=== PATIENT | male | born 1935 | race Two or more races ===

== ENCOUNTER 2023-05-19 15:37 | Inpatient (IN) | payer MEDICARE, OTHER ==
[~2023-05-19] VITALS: Ht 162.6 cm; Wt 66.5 kg
[2023-05-19 17:18] LABS: Basophils # (auto) 0.1 10 ^3/uL (0-0.2); Eosinophils # (auto) 0.2 10 ^3/uL (0-0.8); Eosinophils % (auto) 2.1 % (0.0-7.0); Monocytes # (auto) 0.5 10 ^3/uL (0-1.3)
[2023-05-19 17:19] LABS: Basophils % (auto) 0.7 % (0.0-2.0); Hematocrit 47.9 % (41.0-53.0); Lymphocytes # (auto) 1.2 10 ^3/uL (0.4-5.4); Lymphocytes % (auto) 11.7 % (10.0-50.0); Mean Corpuscular Hemoglobin 34.8 pg (28.0-32.0); Mean Corpuscular Hgb Conc. 35.4 g/dL (32.0-36.0); Mean Corpuscular Volume 98.3 fL (80.0-100.0); Neutrophils % (auto) 80.5 % (37.0-80.0); Nucleated Red Blood Cells % 0.1 %; Red Blood Cells 4.87 10^6/uL (4.5-5.90); Red Cell Distribution Width 13.5 % (11.8-14.3); White Blood Cell 9.9 10^3/uL (4.4-10.8)
[2023-05-19 17:37] LABS: Alanine Aminotransferase 12 U/L (7-40); Albumin 4.6 g/dL (3.2-4.8); Alkaline Phosphatase 108 U/L (46-116); Anion Gap 9 (5-15); Aspartate Aminotransferase 23 U/L (13-40); BUN/Creatinine Ratio 6.1 (10.0-20.0); Bilirubin, Total 1.2 mg/dL (0.2-1.0); Blood Alcohol 3.8 mg/dL (<10); Blood Urea Nitrogen 7 mg/dL (9-23); Calcium 9.4 mg/dL (8.7-10.4); Carbon Dioxide 25 mmol/L (20-30); Chloride 101 mmol/L (98-107); Glucose 89 mg/dL (74-106); Lipase 31 U/L (12-53); Potassium 4.3 mmol/L (3.5-5.1); Sodium 135 mmol/L (136-145); Total Protein 7.8 g/dL (5.7-8.2)
[2023-05-19 17:44] LABS: INR 1.11 (0.9-1.15); Partial Thromboplastin Time 29.9 SEC (24.5-34.5); Prothrombin Time 11.6 sec (9.3-11.8)
[2023-05-19] MEDS ORDERED: ASPirin 325 MG TAB PO ONE (18:30)
[2023-05-19] MEDS ORDERED: ACETAMINOPHEN 325 MG TAB PO PRN (22:30)
[2023-05-19] MEDS ORDERED: DOCUSATE SOD 100 MG CAP PO PRN (22:30)
[2023-05-19] MEDS ORDERED: HYDROcodone-ACET 5/325MG TAB PO PRN (22:30)
[2023-05-19] MEDS ORDERED: ONDANSETRON HCL 4 MG/2 ML VIAL IV PRN (22:30)
[2023-05-19] MEDS ORDERED: NITROGLYCERIN 0.4 MG SL TAB SL PRN (23:30)
[2023-05-19] MEDS ORDERED: MORPHINE SULFATE INJ 2 MG/ml SYRG IV PRN (23:30)
[2023-05-20] MEDS: SODIUM CHLORIDE 0.9% 1,000 ML IV SCH ×3 (01:28→21:40)
[2023-05-20 01:30] VITALS: PULSE 65; RESP 18; O2SAT 96
[2023-05-20 05:39] LABS: Eosinophils # (auto) 0.3 10 ^3/uL (0-0.8); Monocytes # (auto) 0.4 10 ^3/uL (0-1.3); Nucleated Red Blood Cells % 0.1 %; White Blood Cell 5.3 10^3/uL (4.4-10.8)
[2023-05-20 05:43] LABS: Basophils # (auto) 0 10 ^3/uL (0-0.2); Basophils % (auto) 0.7 % (0.0-2.0); Eosinophils % (auto) 5.8 % (0.0-7.0); Hematocrit 43.5 % (41.0-53.0); Hemoglobin 15.5 g/dL (13.5-17.5); Lymphocytes # (auto) 0.9 10 ^3/uL (0.4-5.4); Lymphocytes % (auto) 17.2 % (10.0-50.0); Mean Corpuscular Hemoglobin 34.7 pg (28.0-32.0); Mean Corpuscular Hgb Conc. 35.5 g/dL (32.0-36.0); Mean Corpuscular Volume 97.9 fL (80.0-100.0); Monocytes % (auto) 7.5 % (0.0-12.0); Neutrophils # (auto) 3.6 10 ^3/uL (1.6-8.6); Neutrophils % (auto) 68.8 % (37.0-80.0); Red Blood Cells 4.45 10^6/uL (4.5-5.90)
[2023-05-20 05:57] LABS: Alanine Aminotransferase 10 U/L (7-40); Alkaline Phosphatase 97 U/L (46-116); Anion Gap 8 (5-15); Aspartate Aminotransferase 21 U/L (13-40); BUN/Creatinine Ratio 8.7 (10.0-20.0); Blood Urea Nitrogen 9 mg/dL (9-23); Calcium 8.7 mg/dL (8.7-10.4); Carbon Dioxide 25 mmol/L (20-30); Chloride 103 mmol/L (98-107); Glucose 101 mg/dL (74-106); Potassium 3.7 mmol/L (3.5-5.1); Sodium 136 mmol/L (136-145)
[2023-05-20 05:58] LABS: Bilirubin, Total 1.1 mg/dL (0.2-1.0); Total Protein 6.5 g/dL (5.7-8.2)
[2023-05-20] MEDS ORDERED: IOHEXOL 350 MG/ML 100ML IJ ONE (06:03)
[2023-05-20 07:35] VITALS: RESP 18; O2SAT 98
[2023-05-20] MEDS: ASPirin 81 mg TAB PO SCH (09:30)
[2023-05-20] MEDS ORDERED: AZITHROMYCIN 500MG/ 250ML 250 ML IV ONE (14:00)
[2023-05-20] MEDS ORDERED: cefTRIAXone 1GM/50ML D5W 50 ML IV ONE (14:00)
[2023-05-20 15:45] LABS: COVID19 ANTIGEN SOFIA FIA NEGATIVE (NEGATIVE)
[2023-05-20 19:45] VITALS: PULSE 72; RESP 16; O2SAT 96
[2023-05-20] MEDS: ATORVASTATIN 20 MG TAB PO SCH (22:15)
[2023-05-20 23:28] VITALS: BP 140/66; PULSE 58; RESP 18; TEMP 98.8; O2SAT 96
[2023-05-20 23:51] VITALS: BP 114/57; PULSE 74; RESP 19; TEMP 97.5; O2SAT 100
[2023-05-21] VITALS (8 sets, daily range): BP systolic 102–159; BP diastolic 60–76; PULSE 64–86; RESP 17–20; TEMP 97.5–98.6; O2SAT 91–98
[2023-05-21] MEDS: cefTRIAXone 1GM/50ML D5W 50 ML IV SCH (08:44)
[2023-05-21] MEDS: AZITHROMYCIN 500MG/ 250ML 250 ML IV SCH (09:35)
[2023-05-21] MEDS: ASPirin 81 mg TAB PO SCH (09:35)
[2023-05-21] MEDS ORDERED: NICOTINE 21MG/24 HR TOPICAL PATCH TD ONE (10:45)
[2023-05-21 11:32] LABS: Urine Bacteria NONE SEEN /hpf (None Seen); Urine Blood TRACE /uL (Negative); Urine Clarity Clear (Clear); Urine Color Yellow (Yellow); Urine Protein, UAD Negative (Negative); Urine Specific Gravity 1.025 (1.001-1.035); Urine WBC 1 /hpf (0 - 3)
[2023-05-21 11:54] LABS: Amphetamine Screen, Urine Neg (NEGATIVE); Benzodiazephine Screen, Urine Neg (NEGATIVE)
[2023-05-21 11:55] LABS: Barbiturate Scree,Urine Neg (NEGATIVE); Cannabinoid Screen, Urine Neg (NEGATIVE); Cocaine Screen, Urine Neg (NEGATIVE); Opiate Scree,Urine Neg (NEGATIVE); Phencyclidine Screen, Urine Neg (NEGATIVE)
[2023-05-21] MEDS: ATORVASTATIN 20 MG TAB PO SCH (20:01)
[2023-05-22] MEDS: SODIUM CHLORIDE 0.9% 1,000 ML IV SCH (00:30)
[2023-05-22 05:03] VITALS: BP 137/65; PULSE 51; RESP 18; TEMP 97.9; O2SAT 96
[2023-05-22 08:00] VITALS: PULSE 69
[2023-05-22 08:43] VITALS: BP 157/77; PULSE 57; RESP 17; TEMP 97.7; O2SAT 97
[2023-05-22] MEDS: ASPirin 81 mg TAB PO SCH (09:42)
[2023-05-22] MEDS: cefTRIAXone 1GM/50ML D5W 50 ML IV SCH (09:42)
[2023-05-22] MEDS: AZITHROMYCIN 500MG/ 250ML 250 ML IV SCH (09:43)
[2023-05-22] MEDS ORDERED: NICOTINE 21MG/24 HR TOPICAL PATCH TD SCH (10:00)
[2023-05-22] MEDS ORDERED: AZIT500T66 PO (12:14)
[2023-05-22 12:30] VITALS: BP 162/70; PULSE 56; RESP 17; TEMP 97.6; O2SAT 100
[2023-05-22 13:48] VITALS: BP 133/59
== END 2023-05-22 16:54 | disposition home or self-care (01) | DRG 177 ==
LOC: EDBD → ER 15:37 → EDBD 15:37 → TELE 23:19 → TELE-WESTW 05-20 21:43
PROVIDERS: ADMIT Nurse Practitioner Family; ATTEND Family Medicine
DX: J69.0 Pneumonitis due to inhalation of food and vomit (principal); G93.41 Metabolic encephalopathy; I21.4 Non-ST elevation (NSTEMI) myocardial infarction; I10 Essential (primary) hypertension; Z20.822 Contact with and (suspected) exposure to COVID-19; F03.B0 Unspecified dementia, moderate, without behavioral disturbance, psychotic disturbance, mood disturbance, and anxiety; F17.200 Nicotine dependence, unspecified, uncomplicated; Z86.73 Personal history of transient ischemic attack (TIA), and cerebral infarction without residual deficits; J15.9 Unspecified bacterial pneumonia
CPT/HCPCS: 36415; 70450; 71045; 71275; 80053; 80307; 80320; 81001; 82962; 83605; 83690; 83735; 83880; 84484; 85025; 85379; 85610; 85730; 87040; 87086; 87426; 93005; 93306; 93970; G0378; J0696

== ENCOUNTER 2023-06-07 09:10 | Emergency (ER) | payer MEDICARE, MEDICAID ==
[~2023-06-07] VITALS: Ht 162.6 cm; Wt 60.2 kg
[~2023-06-07 09:10] MED LIST: AZIT500T66 PO
[2023-06-07 09:46] VITALS: BP 104/71; PULSE 85; RESP 15; TEMP 97.6; O2SAT 98
== END 2023-06-07 10:30 | disposition home or self-care (01) ==
LOC: ER 09:10
DX: S62.615A Displaced fracture of proximal phalanx of left ring finger, initial encounter for closed fracture (principal); S62.617A Displaced fracture of proximal phalanx of left little finger, initial encounter for closed fracture; X58.XXXA Exposure to other specified factors, initial encounter; Y93.89 Activity, other specified; Y92.89 Other specified places as the place of occurrence of the external cause; Y99.8 Other external cause status
CPT/HCPCS: 73130